=== PATIENT | male | born 1995 | race Caucasian/White ===

== ENCOUNTER → 2017-03-11 | Outpatient (REF) | payer OTHER ==
[~2017-03-11] MED LIST: No meds at discharge
== END ==
LOC: M WUC 09:32
PROVIDERS: ATTEND Physician Assistant
DX: J02.9 Acute pharyngitis, unspecified (principal)

== ENCOUNTER → 2017-10-04 | Outpatient (REF) | payer OTHER ==
[~2017-10-04] MED LIST changes: +FLOM5CAP PO; +IBUP-1022 PO; +PERC5TAB12 PO; +ZOFR4TAB3 PO
== END ==
LOC: M LAB REF 11:06
PROVIDERS: ATTEND Physician Assistant
DX: R19.7 Diarrhea, unspecified (principal)

== ENCOUNTER → 2017-10-04 | Outpatient (CLI) | payer OTHER ==
[2017-10-04 18:01] LABS: MEAN CORPUSCULAR HEMOGLOBIN 30.4 pg (27.0-33.0); MEAN CORPUSCULAR HGB CONC 34.6 g/dl (32.0-36.5); MEAN CORPUSCULAR VOLUME 87.9 fl (80.0-96.0); PLATELET COUNT, AUTOMATED 219 10^3/uL (150-450); RED CELL DISTRIBUTION WIDTH 11.6 % (11.5-14.5); WHITE BLOOD COUNT 5.1 10^3/uL (4.0-10.0)
[2017-10-04 18:07] LABS: ADD MANUAL DIFFER YES; DIFF SLIDE NUMBER 103; POSITIVE MORPH POS FLAG
[2017-10-04 18:10] LABS: ALBUMIN/GLOBULIN RATIO 1.05 (1.00-1.93); ALKALINE PHOSPHATASE 67 U/L (45-117); ALT/SGPT 49 U/L (12-78); ANION GAP 9 MEQ/L (8-16); AST/SGOT 32 U/L (7-37); BILIRUBIN,TOTAL 0.8 MG/DL (0.2-1.0); BLOOD UREA NITROGEN 20 MG/DL (7-18); CALCIUM LEVEL 8.9 MG/DL (8.5-10.1); CARBON DIOXIDE LEVEL 27 MEQ/L (21-32); CHLORIDE LEVEL 107 MEQ/L (98-107); CREATININE FOR GFR 0.84 MG/DL (0.70-1.30); GLOMERULAR FILTRATION RATE > 60.0 (>60); GLUCOSE, FASTING 78 MG/DL (70-105); POTASSIUM SERUM 4.6 MEQ/L (3.5-5.1); SODIUM LEVEL 143 MEQ/L (136-145); TOTAL PROTEIN 7.8 GM/DL (6.4-8.2)
[2017-10-04 18:35] LABS: BANDS 4 % (< 11); BASOPHILS 1 % (0-4)
== END ==
LOC: M WUC 10:42
PROVIDERS: ATTEND Physician Assistant
DX: R10.30 Lower abdominal pain, unspecified (principal); R19.7 Diarrhea, unspecified

== ENCOUNTER 2017-10-05 09:10 | Emergency (ER) | payer OTHER ==
[~2017-10-05] VITALS: Ht 188 cm; Wt 113.6 kg
[~2017-10-05 09:10] MED LIST changes: -FLOM5CAP PO; -IBUP-1022 PO; -PERC5TAB12 PO; -ZOFR4TAB3 PO
[2017-10-05] MEDS ORDERED: PERCOCET 5MG/325MG TAB PO ONE (09:30)
--- NOTE | 2017-10-05 10:16 | REP ---
SCROTAL ULTRASOUND: Real-time sonographic evaluation of the scrotum and contents performed. Testicles are normal in size and echotexture, right testicle measuring 4.3 x 2.4 x 3.1 cm and left testicle 4.5 x 2.2 x 3.2 cm. There is no testicular mass or torsion. Blood flow is seen in each testicle with duplex Doppler evaluation, RI right testicle 0.62 and left testicle 0.67. No fluid collections are seen. IMPRESSION: Negative scrotal ultrasound. Signed by Zion Herbert MD 10/07/2017 08:54 A
[2017-10-05 10:48] LABS: BASO % 0.3 % (0.0-1.0); EOS % 0.3 % (0.0-3.0); IMMATURE GRANULOCYTE % 1.1 % (0-0); LYMPH % 14.6 % (24.0-44.0); MEAN CORPUSCULAR HEMOGLOBIN 30.5 pg (27.0-33.0); MEAN CORPUSCULAR HGB CONC 36.3 g/dl (32.0-36.5); MEAN CORPUSCULAR VOLUME 84.1 fl (80.0-96.0); MONO # 0.4 10^3/uL (0.0-0.8); NEUTROPHILS # 5.2 10^3/uL (1.8-7.7); NEUTROPHILS % 77.7 % (36.0-66.0); PLATELET COUNT, AUTOMATED 237 10^3/uL (150-450); RED CELL DISTRIBUTION WIDTH 11.4 % (11.5-14.5); WHITE BLOOD COUNT 6.6 10^3/uL (4.0-10.0)
[2017-10-05 11:24] LABS: ALBUMIN/GLOBULIN RATIO 1.08 (1.00-1.93); ALKALINE PHOSPHATASE 66 U/L (45-117); ALT/SGPT 49 U/L (12-78); ANION GAP 7 MEQ/L (8-16); AST/SGOT 32 U/L (7-37); BILIRUBIN,DIRECT 0.2 MG/DL (0.0-0.2); BILIRUBIN,TOTAL 0.8 MG/DL (0.2-1.0); BLOOD UREA NITROGEN 14 MG/DL (7-18); CALCIUM LEVEL 8.6 MG/DL (8.5-10.1); CARBON DIOXIDE LEVEL 26 MEQ/L (21-32); CHLORIDE LEVEL 110 MEQ/L (98-107); CREATININE FOR GFR 0.93 MG/DL (0.70-1.30); GLOMERULAR FILTRATION RATE > 60.0 (>60); GLUCOSE, FASTING 102 MG/DL (70-105); POTASSIUM SERUM 4.6 MEQ/L (3.5-5.1); SODIUM LEVEL 143 MEQ/L (136-145); TOTAL PROTEIN 7.7 GM/DL (6.4-8.2)
--- NOTE | 2017-10-05 11:24 | REP ---
CT ABDOMEN AND PELVIS WITHOUT CONTRAST: CT abdomen and pelvis performed without oral or IV contrast. Sagittal and coronal reconstruction images are performed. Visualized lung bases are clear. The liver, spleen, adrenals, and pancreas are unremarkable. Left kidney is unremarkable. There is mild right hydroureteronephrosis caused by a 4 mm calculus in the distal right ureter. Urinary bladder is not well distended and not well evaluated, but no definite intraluminal calculi are seen. There is no abdominal aortic aneurysm. There is no adenopathy. No free air is seen. There is mild free fluid in the pelvis. I see no bowel wall thickening. IMPRESSION: There is a 4 mm calculus in the distal right ureter causing mild right hydroureteronephrosis. There is mild free fluid in the pelvis. Signed by Zion Herbert MD 10/07/2017 08:54 A
[2017-10-05 11:50] VITALS: BP 133/75
[2017-10-05] MEDS ORDERED: PERC5TAB12 PO (11:50)
[2017-10-05] MEDS ORDERED: IBUP-1022 PO (11:50)
[2017-10-05] MEDS ORDERED: ZOFR4TAB3 PO (11:50)
[2017-10-05] MEDS ORDERED: FLOM5CAP PO (11:50)
== END 2017-10-05 11:56 | disposition home or self-care (01) ==
LOC: M ED 09:10
DX: N21.1 Calculus in urethra (principal); K62.5 Hemorrhage of anus and rectum; F17.200 Nicotine dependence, unspecified, uncomplicated